=== PATIENT | female | born 1970 | race Caucasian/White ===

== ENCOUNTER 2018-03-12 06:13 | Emergency (ER) | payer BC ==
[2018-03-12 06:29] VITALS: TEMP 98.5; BMI 27.4
--- NOTE | 2018-03-12 07:10 | PDOC ---
History of Present Illness - General Chief Complaint: Chest Pain Stated Complaint: CHEST DISCOMFORT - History of Present Illness Initial Comments: 03/12/18 07:46 The patient is a 47 year old female with no significant PMH who presents for evaluation of chest pain. The patient reports a 2 day history of sharp left sided chest pain with radiation to her left arm and neck prompting her presentation to the ED for further evaluation. She notes that she had similar symptoms in the past several years ago as well. She denies any exacerbating or relieving factors. She notes some associated nausea, but otherwise denies fevers, chills, cough, SOB, vomiting, abdominal pain, numbness, tingling, weakness, or changes with urination or bowel movements. Past History - Past Medical History Allergies/Adverse Reactions: Allergies Allergy/AdvReac Type Severity Reaction Status Date / Time codeine [Codeine] Allergy Verified 01/19/16 10:52 morphine Allergy Verified 01/19/16 10:52 Home Medications: Ambulatory Orders Methocarbamol [Robaxin -] 500 mg PO BID #14 tablet 03/12/18 Naproxen [Naprosyn -] 500 mg PO BID #14 tablet 03/12/18 - Suicide/Smoking/Psychosocial Hx Smoking Status: No Smoking History: Never smoked Number of Cigarettes Smoked Daily: 0 Information on smoking cessation initiated: No Hx Alcohol Use: No Drug/Substance Use Hx: No Substance Use Type: None Review of Systems - Review of Systems Comments:: 03/12/18 07:49 Constitutional: No fevers, chills, fatigue, malaise HEENT: No Rhinorrhea, nasal congestion, visual changes Cardiovascular: Chest pain. No syncope, palpitations, lightheadedness Respiratory: No Cough, SOB, Hemoptysis, Gastrointestinal: Nausea. No Abdominal pain, Vomiting, Constipation, Diarrhea, Melena Genitourinary: No Dysuria, Frequency, Urgency, Hesitancy, Hematuria, Flank pain Musculoskeletal: No Myalgia, arthralgia Skin: No rashes, itching, bruising, pallor Neurologic: No Headache, Dizziness, Numbness, Weakness, or Tingling Psychiatric: No Hallucinations. No SI or HI *Physical Exam - Vital Signs Last Vital Signs Temp Pulse Resp BP Pulse Ox 98.5 F 86 19 126/89 100 03/12/18 06:15 03/12/18 06:15 03/12/18 06:15 03/12/18 06:15 03/12/18 06:15 - Physical Exam Comments: 03/12/18 07:50 General Appearance: Nourished. No Apparent Distress HEENT: No Pharyngeal Erythema, Tonsillar Exudate, Tonsillar Erythema Neck: No Cervical Lymphadenopathy Respiratory/Chest: Lungs Clear, Normal Breath Sounds. Reproducible tenderness to palpation along the left sternal border. No Crackles, Rales, Rhonchi, Wheezing Cardiovascular: Regular Rhythm, Regular Rate. No Murmur, Gallops, Rubs Gastrointestinal/Abdominal: Normal Bowel Sounds, Soft. No Guarding, Rebound, Tenderness Musculoskeletal: No CVA Tenderness Extremity: Normal Capillary Refill Integumentary: Normal Color, Dry, Warm Neurologic: Fully Oriented, Alert, Normal Mood/Affect, Normal Response, Moderate Sedation - Procedure Monitoring Vital Signs: Procedure Monitoring Vital Signs Temperature 98.5 F 03/12/18 06:15 Pulse Rate 86 03/12/18 06:15 Respiratory Rate 19 03/12/18 06:15 Blood Pressure 126/89 03/12/18 06:15 O2 Sat by Pulse Oximetry (%) 100 03/12/18 06:15 Heart Score/ECG Review - History History: Slightly suspicious - Electrocardiogram EKG: Normal - Age Age: 45-65 - Risk Factors Based on the list above the patient has:: No risk factors known - Troponin Troponin: </= normal limit - Score Heart Score - Total: 1 #1 ECG reviewed & interpreted by me at: 09:17 General ECG Interpretation: Sinus Rhythm, Normal Rate, Normal Intervals, No acute ischemic changes ED Treatment Course - LABORATORY CBC & Chemistry Diagram: 03/12/18 07:33 03/12/18 07:33 Medical Decision Making - Medical Decision Making 03/12/18 07:51 The patient is a 47 year old female with no significant PMH who presents for evaluation of chest pain. Differential includes but is not limited to: ACS, Musculoskeletal, Infectious, Metabolic Derangement. Given the patient's history and physical exam, it is likely the patient's symptoms are musculoskeletal in nature. She is low risk for PE via PERC. We will obtain a cbc, cmp, troponin, ekg, chest plain film to evaluate further. We will continue to monitor and reassess while here in the ED. 03/12/18 09:37 CBC, cmp, troponin are unremarkable. Chest plain film is unremarkable as read by our radiologist. The patient reports some improvement in her pain. It is likely her symptoms are musculoskeletal in nature. We are comfortable discharging the patient home with primary care provider and cardiology follow up. We discussed the results, plan, and return precautions with the patient who voiced understanding and is agreeable with the plan. *DC/Admit/Observation/Transfer Diagnosis at time of Disposition: Chest pain Qualifiers: Chest pain type: unspecified Qualified Code(s): R07.9 - Chest pain, unspecified - Discharge Dispostion Disposition: HOME Condition at time of disposition: Stable - Prescriptions Prescriptions: Methocarbamol [Robaxin -] 500 mg PO BID #14 tablet Naproxen [Naprosyn -] 500 mg PO BID #14 tablet - Referrals Referrals: Nahum Vigil MD [Staff Physician] - - Patient Instructions Printed Discharge Instructions: DI for Atypical Chest Pain Additional Instructions: Please return to the ER if you experience concerning or worsening symptoms including worsening difficulty breathing, weakness, or chest pain. Your lab results were normal here in the ER. You may continue to use motrin at home to help manage your pain. Please call to schedule a follow up appointment with your primary care provider and our pega developer within 2-3 days to discuss your ER visit and further management of your symptoms. - Post Discharge Activity
[2018-03-12] MEDS ORDERED: IBUPROFEN 400 MG TABLET (FP) PO ONE ×2 (07:43→07:46)
[2018-03-12 08:15] LABS: BASO % 0.6 % (0-2.0); EOS % 1.9 % (0-4.5); HEMOGLOBIN 13.4 GM/dL (10.7-15.3); LYMPH % 29.3 % (8-40); MCH 31.7 pg (25.7-33.7); MCHC 33.5 g/dl (32.0-36.0); MEAN CELL VOLUME 94.5 fl (80-96); MEAN PLT VOLUME 8.5 fl (7.5-11.1); MONO % 6.4 % (3.8-10.2); NEUT % 61.8 % (42.8-82.8); PLATELET COUNT 285 K/MM3 (134-434); RBC 4.24 M/mm3 (3.60-5.2); RDW 12.5 % (11.6-15.6); WHITE BLOOD COUNT 4.4 K/mm3 (4.0-10.0)
--- NOTE | 2018-03-12 08:22 | PDOC ---
Attending Attestation - Resident Resident Name: Flynn Hernandez - ED Attending Attestation I have performed the following: I have examined & evaluated the patient, The case was reviewed & discussed with the resident, I agree w/resident's findings & plan, Exceptions are as noted - HPI HPI: 03/12/18 07:58 Ms Luis palomares 47 yo F who presents to the ER with a complaint of chest pain Pt reports that her chest pain began 2 days ago, located in the left chest, radiation to the arm and neck, no radiation to the back No shortness of breath No nausea or diaphoresis no recent travel, no leg swelling - Physicial Exam PE: 03/12/18 08:22 GENERAL: The patient is in no acute distress. EYES: PERRLA, EOMI, sclera anicteric, conjunctiva clear. ENT: Ears normal, nares patent, oropharynx clear without exudates. Moist mucous membranes. NECK: Normal range of motion, supple without lymphadenopathy, JVD, or masses. LUNGS: Breath sounds equal, clear to auscultation bilaterally. No wheezes, and no crackles. HEART:Regular rate and rhythm, normal S1 and S2 without murmur, rub or gallop. ABDOMEN: Soft, nontender, normoactive bowel sounds. No guarding, no rebound. No masses palpable. EXTREMITIES: Normal range of motion, no edema. No clubbing or cyanosis. No erythema, or tenderness. NEUROLOGICAL: Cranial nerves II through XII grossly intact. Normal speech. No focal neurological deficits. MUSCULOSKELETAL: Back non-tender to palpation, no CVA tenderness SKIN: Warm, Dry, normal turgor, no rashes or lesions noted. - Medical Decision Making 03/12/18 08:22 EKG - Twelve-lead EKG was performed and reviewed by me. There is normal sinus rhythm with a normal rate. The axis is normal. The intervals are normal. There are no ST or T wave abnormalities. Impression: Normal twelve-lead EKG CXR - Labs - Low risk wells, PERC negative Pain reproducible with palpation of the chest wall Will give motrin for pain
[2018-03-12 08:41] LABS: ALK PHOS 98 U/L (45-117); ANION GAP 7 MMOL/L (8-16); BILIRUBIN,TOTAL 0.3 mg/dL (0.2-1); BLOOD UREA NITROGEN 12 mg/dL (7-18); CALCIUM 8.9 mg/dL (8.5-10.1); CHLORIDE 107 mmol/L (98-107); CO2 28 mmol/L (21-32); CREATININE 0.7 mg/dL (0.55-1.3); GLUCOSE,RANDOM 90 mg/dL (74-106); POTASSIUM 4.2 mmol/L (3.5-5.1); SGOT/AST 22 U/L (15-37); SGPT/ALT 22 U/L (13-61); SODIUM 142 mmol/L (136-145); TOT PROT 7.2 g/dl (6.4-8.2)
[2018-03-12] MEDS ORDERED: METHOCARBAMOL 500 MG TABLET PO ONE (09:34)
[2018-03-12] MEDS ORDERED: METHOCARBAMOL 500 MG TABLET ONE (09:42)
[2018-03-12 10:42] VITALS: BP 128/78; PULSE 68
--- NOTE | 2018-03-12 13:26 | EKG ---
Test Reason : Blood Pressure : / mmHG Vent. Rate : 069 BPM Atrial Rate : 069 BPM P-R Int : 156 ms QRS Dur : 072 ms QT Int : 350 ms P-R-T Axes : -11 011 022 degrees QTc Int : 375 ms POOR DATA QUALITY, INTERPRETATION MAY BE ADVERSELY AFFECTED NORMAL SINUS RHYTHM NORMAL ECG WHEN COMPARED WITH ECG OF 17-DEC-2011 17:51, NO SIGNIFICANT CHANGE WAS FOUND Confirmed by MARIN STOKES, KELLEY ([id number]) on 03/12/2018 1:25:33 PM Referred By: Confirmed By:KELLEY FUNES MD
== END 2018-03-12 09:55 | disposition home or self-care (01) ==
LOC: JER 06:13
DX: R07.9 Chest pain, unspecified (principal)
CPT/HCPCS: 36415; 71046-TC-FY; 80053; 82550; 84484; 84703; 85025; 93005; 93010; 99284-25

== ENCOUNTER 2019-04-12 10:40 | Emergency (ER) | payer BC, OTHER ==
[2019-04-12 10:50] VITALS: BP 167/95; PULSE 89; TEMP 98.3; BMI 29.2
--- NOTE | 2019-04-12 11:25 | PDOC ---
History of Present Illness - General Chief Complaint: Cold Symptoms Stated Complaint: BACK PAIN Time Seen by Provider: 04/12/19 10:56 History Source: Patient - History of Present Illness Timing/Duration: reports: other (5 days ago) Past History - Past Medical History Allergies/Adverse Reactions: Allergies Allergy/AdvReac Type Severity Reaction Status Date / Time codeine [Codeine] Allergy Rash Verified 04/12/19 10:46 morphine Allergy Difficulty Verified 04/12/19 10:46 Breathing Home Medications: Ambulatory Orders Methocarbamol [Robaxin -] 500 mg PO BID #14 tablet 03/12/18 Naproxen [Naprosyn -] 500 mg PO BID #14 tablet 03/12/18 - Psycho Social/Smoking Cessation Hx Smoking Status: No Smoking History: Never smoked Have you smoked in the past 12 months: No Number of Cigarettes Smoked Daily: 0 Hx Alcohol Use: No Drug/Substance Use Hx: No Substance Use Type: None Review of Systems - Review of Systems Constitutional: No: Chills, Fever HEENTM: No: Ear Pain, Nose Pain Respiratory: Yes: Cough. No: Shortness of Breath *Physical Exam - Vital Signs Last Vital Signs Temp Pulse Resp BP Pulse Ox 98.3 F 89 18 167/95 99 04/12/19 10:46 04/12/19 10:46 04/12/19 10:46 04/12/19 10:46 04/12/19 10:46 - Physical Exam General Appearance: Yes: Appropriately Dressed. No: Apparent Distress HEENT: positive: Normal ENT Inspection, Normal Voice, TMs Normal, Pharynx Normal. negative: Scleral Icterus (R), Scleral Icterus (L) Neck: positive: Supple Respiratory/Chest: positive: Lungs Clear, Normal Breath Sounds. negative: Respiratory Distress Cardiovascular: positive: Regular Rate, S1, S2 Integumentary: positive: Dry, Warm Neurologic: positive: Fully Oriented, Alert, Normal Mood/Affect Medical Decision Making - Medical Decision Making 04/12/19 11:22 48 yo female, history of fibromyalgia, here with congestion and dry cough with pleuritic chest and back pain. No SOB, body aches fever or chills see exam M/l viral URI Exam wnl Dc w/ supportive tx Discharge - Discharge Information Problems reviewed: Yes Clinical Impression/Diagnosis: URI (upper respiratory infection) Qualifiers: URI type: unspecified viral URI Qualified Code(s): J06.9 - Acute upper respiratory infection, unspecified Condition: Good Disposition: HOME - Follow up/Referral Referrals: Rafa Orellana MD [Primary Care Provider] - - Patient Discharge Instructions Patient Printed Discharge Instructions: DI for Viral Upper Respiratory Infection -- Adult Print Language: [id number] - Post Discharge Activity
== END 2019-04-12 11:35 | disposition home or self-care (01) ==
LOC: JERFT 10:40
DX: J06.9 Acute upper respiratory infection, unspecified (principal); Z88.6 Allergy status to analgesic agent; M79.7 Fibromyalgia
CPT/HCPCS: 99282-25

== ENCOUNTER 2021-07-05 16:46 | Emergency (ER) | payer OTHER ==
[2021-07-05 17:09] VITALS: BP 106/68; PULSE 104; TEMP 100; BMI 28.3
[2021-07-05] MEDS ORDERED: KETOROLAC TROMETHAMINE 30 MG/1 ML VIAL IVPB ONE (17:21)
[2021-07-05] MEDS ORDERED: SODIUM CHLORIDE 0.9% 500 ML INFUS.BAG IV ONE (17:21)
[2021-07-05] MEDS ORDERED: METOCLOPRAMIDE HCL INJECTION 10 MG/2 ML VIAL IVPUSH ONE (17:22)
[2021-07-05] MEDS ORDERED: METOCLOPRAMIDE HCL INJECTION 10 MG/2 ML VIAL ONE (17:42)
[2021-07-05] MEDS ORDERED: KETOROLAC TROMETHAMINE 30 MG/1 ML VIAL ONE (17:42)
[2021-07-05 18:04] LABS: BASO % 0.4 % (0-2.0); EOS % 0.1 % (0-4.5); HEMATOCRIT 35.4 % (32.4-45.2); HEMOGLOBIN 12.2 GM/dL (10.7-15.3); LYMPH % 16.9 % (8-40); MCH 32.7 pg (25.7-33.7); MCHC 34.4 g/dl (32.0-36.0); MEAN CELL VOLUME 95.1 fl (80-96); MEAN PLT VOLUME 7.9 fl (7.5-11.1); MONO % 14.9 % (3.8-10.2); NEUT % 67.7 % (42.8-82.8); PLATELET COUNT 287 10^3/uL (134-434); RBC 3.72 M/mm3 (3.60-5.2); WHITE BLOOD COUNT 8.4 K/mm3 (4.0-10.0)
[2021-07-05 18:22] LABS: CALCIUM 8.9 mg/dL (8.5-10.1)
[2021-07-05 18:23] LABS: ALBUMIN 3.3 g/dl (3.4-5.0); BLOOD UREA NITROGEN 9.1 mg/dL (7-18)
[2021-07-05 18:26] LABS: CREATININE 0.9 mg/dL (0.55-1.3)
[2021-07-05 18:27] LABS: BILIRUBIN,TOTAL 0.4 mg/dL (0.2-1); TOT PROT 7.3 g/dl (6.4-8.2)
== END 2021-07-05 19:01 | disposition home or self-care (01) ==
LOC: JER 16:46
PROC: 3E0333Z Introduction of Anti-inflammatory into Peripheral Vein, Percutaneous Approach (ICD-10-PCS; principal; 2021-07-05)
PROC: 3E033GC Introduction of Other Therapeutic Substance into Peripheral Vein, Percutaneous Approach (ICD-10-PCS; 2021-07-05)
DX: R51.9 Headache, unspecified (principal)
CPT/HCPCS: 36415; 80053; 85025; 99284-25